=== PATIENT | male | born 1990 | race African-American/Black ===

== ENCOUNTER 2016-11-03 13:08 | Emergency (ER) | payer MEDICAID, OTHER ==
[~2016-11-03] VITALS: Ht 162.6 cm; Wt 58.0 kg
[2016-11-03 13:46] VITALS: BP 123/73
== END 2016-11-03 19:00 | disposition left against medical advice (07) ==
LOC: ER 17:38
DX: R13.10 Dysphagia, unspecified (principal); Z53.21 Procedure and treatment not carried out due to patient leaving prior to being seen by health care provider